=== PATIENT | male | born 1950 | race African-American/Black ===

== ENCOUNTER 2018-01-23 10:27 | Emergency (ER) | payer MEDICARE ==
[~2018-01-23] VITALS: Ht 182.9 cm; Wt 109.0 kg
[2018-01-23 12:29] VITALS: BP 142/96
== END 2018-01-23 12:30 | disposition home or self-care (01) ==
LOC: ER 12:01
DX: M25.561 Pain in right knee (principal); I10 Essential (primary) hypertension; E11.9 Type 2 diabetes mellitus without complications
CPT/HCPCS: 99282